=== PATIENT | male | born 1985 | race Caucasian/White ===

== ENCOUNTER 2016-10-11 21:53 | Emergency (ER) | payer OTHER ==
[2016-10-11 21:56] VITALS: BP 153/95
== END 2016-10-11 23:00 | disposition home or self-care (01) ==
LOC: ED 21:53
DX: S93.401A Sprain of unspecified ligament of right ankle, initial encounter (principal); S13.4XXA Sprain of ligaments of cervical spine, initial encounter; S00.91XA Abrasion of unspecified part of head, initial encounter; S83.92XA Sprain of unspecified site of left knee, initial encounter; E11.9 Type 2 diabetes mellitus without complications; V49.9XXA Car occupant (driver) (passenger) injured in unspecified traffic accident, initial encounter; W22.10XA Striking against or struck by unspecified automobile airbag, initial encounter; Z79.4 Long term (current) use of insulin; Z88.5 Allergy status to narcotic agent; Y93.89 Activity, other specified; Y99.8 Other external cause status; Y92.89 Other specified places as the place of occurrence of the external cause